=== PATIENT | male | born 1965 | race Hispanic/Latino ===

== ENCOUNTER 2017-02-25 01:10 | Emergency (ER) | payer SELFPAY ==
[2017-02-25 01:26] VITALS: TEMP 97.5; O2SAT 95
[2017-02-25] MEDS ORDERED: Bacitracin 500 Units/gm Oint Foilpak UD TOP ONE (01:47)
[2017-02-25] MEDS ORDERED: Bacitracin 500 Units/gm Oint Foilpak UD ONE (02:12)
--- NOTE | 2017-02-25 02:12 | C.PDOC ---
History Of Present Illness 51 year old patient presents to the ED complaining of a nose bleed s/p tripping and falling on the curb prior to arrival. Patient states he fell flat on his face. He denies any loss of consciousness, mouth pain, or any other injuries. - HPI Time Seen by Provider: 02/25/17 01:39 Chief Complaint (Nursing): Trauma History Per: Patient History/Exam Limitations: no limitations Onset/Duration Of Symptoms: Mins (prior to arrival) Severity: Mild Pain Scale Rating Of: 3 Recent travel outside of the [place]: No - Fall Fall:Prior To Injury: Tripped Past Medical History Reviewed: Historical Data, Nursing Documentation, Vital Signs Vital Signs: Last Vital Signs Temp 97.5 F L 02/25/17 03:55 Pulse 89 02/25/17 03:55 Resp 18 02/25/17 03:55 BP 118/77 02/25/17 03:55 Pulse Ox 95 02/25/17 04:31 Family History: States: Unknown Family Hx - Social History Hx Alcohol Use: Yes Hx Substance Use: No - Immunization History Hx Tetanus Toxoid Vaccination: No Hx Influenza Vaccination: No Hx Pneumococcal Vaccination: No Review Of Systems Except As Marked, All Systems Reviewed And Found Negative. ENT: Positive for: Nose Discharge (nose bleed). Negative for: Mouth Pain Neurological: Negative for: Other (loss of consciousness) Physical Exam - Physical Exam Appears: Non-toxic, No Acute Distress Skin: Warm, Dry, Other (multiple abrasions for the face, forehead, and nose) Head: Normacephalic, No Abrasion, No Laceration Eye(s): bilateral: Normal Inspection, PERRL, EOMI Nose: No Deformity, No Septal Hematoma (dry blood in both nares), Other ( swelling and tenderness to the bridge of the nose; dry blood in both nares) Oral Mucosa: Moist Tongue: Normal Appearing Lips: Normal Appearing Teeth: No Tender To Palpation, No Loose, No Avulsed, Other (normal ROM of the jaw) Throat: Normal Neck: Normal ROM, Supple Chest: Symmetrical Cardiovascular: Rhythm Regular Respiratory: Normal Breath Sounds, No Rales, No Rhonchi, No Wheezing Extremity: Normal ROM, No Tenderness, No Deformity, No Swelling Neurological/Psych: Oriented x3, Normal Speech Gait: Steady ED Course And Treatment O2 Sat by Pulse Oximetry: 95 (RA) Pulse Ox Interpretation: Normal - CT Scan/US Maxillofacial CT Other Rad Studies (CT/US): Read By Radiologist (Luisana Palmer MD), Radiology Report Reviewed CT/US Interpretation: EXAM: CT Maxillofacial Without Intravenous Contrast. CLINICAL HISTORY: 51 years old, male; Pain and injury or trauma; Fall; Initial encounter; Bleeding/hemorrhage; Nose;. Face pain and nose pain; Additional info : Nose injury s. P fall. TECHNIQUE: Axial computed tomography images of the face without intravenous contrast. This CT exam was. performed using one or more of the following dose reduction techniques: automated exposure. control, adjustment of the mA and/or kV according to patient size, and/or use of iterative. reconstruction technique. Coronal and sagittal reformatted images were created and reviewed. COMPARISON: No relevant prior studies available. FINDINGS: Bones/joints: There are displaced fractures of the nasal bones bilaterally with overlying soft tissue. swelling. There is minimal irregularity of the nasomaxillary process and a subtle fracture in this. location cannot be excluded. Soft tissues: See above. Orbits: Unremarkable. Sinuses: Unremarkable. No air-fluid levels. Nasopharynx: There is sharp angulation in the nasal septum and it is unclear if this is related to. trauma. IMPRESSION: 1. There are displaced fractures of the nasal bones bilaterally with overlying soft tissue swelling. 2. There is sharp angulation in the nasal septum and it is unclear if this is related to trauma. 3. There is minimal irregularity of the nasomaxillary process and a subtle fracture in this location. cannot be excluded. Medical Decision Making Medical Decision Making: Impression: 51 y/o male with a nose bleed and injury s/p fall Plan: * Maxillofacial CT * Bacitracin * Reassess and disposition Progress: CT shows displaced fractures of the nasal bones bilaterally with overlying soft tissue swelling. Patient reevaluated and was sleeping in no distress. Denies any difficulty breathing. I explained results and will prescribe augmentin and instruct on strict follow up with Dr Tran or ENT. Patient feels comfortable going home and will be discharged. Instructed to return to ER if symptoms worsen or new symptoms arise. Disposition - Disposition Referrals: [facility] [Outside] Robbie Tran MD [Staff Provider] - Disposition: HOME/ ROUTINE Disposition Time: 03:44 Condition: STABLE Additional Instructions: CT reviewed showing nasal bone fracture. Advise to rest, ice and avoid blowing nose. Take pain medication as needed, ibuprofen 600mg every 8 hours with food to not upset stomach. Follow up with ENT in one week. Prescriptions: Amoxicillin/Clavulanate [Augmentin 875 MG-125 MG] 1 tab PO BID #14 tab Instructions: Nasal Fracture (ED) - POA Present On Arrival: Falls Or Trauma - Clinical Impression Clinical Impression: Nasal bone fracture - PA / [employer] / Resident Statement MD/DO has reviewed & agrees with the documentation as recorded. - Scribe Statement The provider has reviewed the documentation as recorded by the Scribe Sadie Cameron All medical record entries made by the Scribe were at my direction and personally dictated by me. I have reviewed the chart and agree that the record accurately reflects my personal performance of the history, physical exam, medical decision making, and the department course for this patient. I have also personally directed, reviewed, and agree with the discharge instructions and disposition.
[2017-02-25 03:56] VITALS: BP 118/77; PULSE 89; RESP 18
--- NOTE | 2017-02-25 09:14 | CT ---
PROCEDURE: Maxillofacial skeleton COMPARISON: No prior study available comparison. TECHNIQUE: Axial computed tomography images were obtained through the maxillofacial skeleton without contrast. Additional 2 dimensional sagittal and coronal reformats provided. No. Radiation dose: Total exam DLP = 847.46 mGy-cm. Findings: The current study reveals comminuted mildly displaced fractures of the nasal bones with left-sided displacement of the several small fracture fragments. There is also fracture of the nasal septum. Overlying soft tissue swelling is noted. Nasal spine is also intact. The remaining maxillofacial skeletal structures appear intact. The orbits and contents unremarkable. Globes intact and lenses appropriately located. Extraocular musculature and optic nerves are unremarkable. There are no retrobulbar hemorrhages or collections. The visualized paranasal sinuses are well-developed and currently fairly well-aerated. There are no fluid levels seen to suggest acute hemorrhage or sinusitis. Minimal mucosal thickening noted within several ethmoid air cells. The nasal mucosa is slightly hypertrophic in appearance likely reactive due to recent trauma. The mandible appears intact. Mandibular condyles are appropriately located. Impression: Comminuted bilateral nasal bone fractures. There is overlying soft tissue swelling. The there is also fracture of the nasal septum.
== END 2017-02-25 03:56 | disposition home or self-care (01) ==
LOC: C.ER 01:10
DX: S02.2XXA Fracture of nasal bones, initial encounter for closed fracture (principal); W01.0XXA Fall on same level from slipping, tripping and stumbling without subsequent striking against object, initial encounter; Y92.480 Sidewalk as the place of occurrence of the external cause